=== PATIENT | male | born 1960 | race Caucasian/White ===

== ENCOUNTER 2018-12-03 23:02 | Emergency (ER) | payer MEDICARE, OTHER ==
[2018-12-04] MEDS ORDERED: Morphine 4 MG/ML VIAL ONE ×2 (00:07→05:51)
[2018-12-04] MEDS ORDERED: Ketorolac Tromethamine 30 MG/ML VIAL ONE (00:07)
[2018-12-04 00:16] LABS: Hemoglobin 12.5 g/dL (14.0-18.0); Mean Corpuscular HGB CONC 33.4 g/dL (32.0-36.0); Mean Corpuscular Volume 95.9 fL (78.0-98.0); Mean Platelet Volume 8.7 fL (7.4-10.4); Platelet Count 162 thou/uL (130-400); RBC Distribution Width 11.9 % (11.5-14.5); Red Blood Cell (RBC) Count 3.92 mill/uL (4.70-6.10)
[2018-12-04 00:28] LABS: Eosinophils 4 % (0-10); Lymphocytes 46 % (21-51); MDiff Complete? YES; Monocytes 3 % (0-10); Neutrophil 47 % (42-75); Platelet Morphology Comment Appears Adequate
[2018-12-04 00:30] LABS: CRP (Inflammatory) Less than 0.50 mg/dL (= or < 0.5); Magnesium 2.1 mg/dL (1.6-2.6)
[2018-12-04 00:36] LABS: ALT (SGPT) 13 U/L (8-55); AST (SGOT) 18 U/L (5-34); Albumin 3.8 g/dL (3.5-5.0); Alkaline Phosphatase 73 U/L (40-150); Anion Gap 14 mmol/L (10-20); BUN (Urea Nitrogen) 22 mg/dL (8.4-25.7); Bilirubin, Total 0.2 mg/dL (0.2-1.2); Calc. Creatinine Clearance 0 mL/min (70-130); Carbon Dioxide 26 mmol/L (22-29); Chloride 104 mmol/L (98-107); Estimated GFR-MDRD 60; Globulin 3.3 g/dL (2.4-3.5); Glucose 83 mg/dL (70-105); Protein, Total 7.1 g/dL (6.0-8.3); Sodium 139 mmol/L (136-145)
[2018-12-04 00:45] LABS: Bilirubin Negative (Negative); Blood, Urine Small (Negative); Clarity CLEAR (Clear); Glucose, Urine (Dipstick) Negative (Negative); Leukocyte Negative (Negative); Nitrite Negative (Negative); Protein, Urine (Dipstick) Negative (Neg-Trace); Specific Gravity, Urine 1.016 (1.002-1.036); Urobilinogen 0.2 mg/dL (0.2-1.0); pH, Urine 6.5 (5.0-9.0)
[2018-12-04 00:48] LABS: Bacteria/HPF None Seen HPF (None Seen); Hyaline Casts/LPF 0-3 HYALINE CAST LPF (0-3 Hyaline); Pathc Cast-AUWi Flag 0.13 (0-2.49); RBC/HPF 0-3 HPF (0-3); Squamous Epithelial 0-3 HPF (0-3); WBC/HPF None Seen HPF (0-3)
--- NOTE | 2018-12-04 07:39 | CT ---
PRELIMINARY REPORT/[facility]/EMERGENCY AFTER HOURS PROCEDURE: EXAM: CT Abdomen and Pelvis With Contrast EXAM DATE/TIME: 12/04/2018 12:36 AM CLINICAL HISTORY: 58 years old, male; Other: Back pain; Patient HX: Er 4. 59m: PT says that he stepped off a porch 4 da ys ago and had a sudden shooting pain in his lower back which has not resolved. PT has had pain with walking since then, and has not been able to urinate since tonight w/ last void this am TECHNIQUE: Imaging protocol: Axial computed tomography images of the abdomen and pelvis with intravenous contrast. Coronal and sagittal reformatted images were created and reviewed. COMPARISON: No relevant prior studies available. FINDINGS: ABDOMEN: Liver: No acute findings. No mass. Gallbladder and bile ducts: No calcified stones. No ductal dilation. Pancreas: No acute findings. No mass. No ductal dilation. Spleen: No acute findings. No mass. Adrenals: No acute findings. No mass. Kidneys and ureters: No acute findings. No mass. No hydronephrosis. Stomach and bowel: Fecal loading. Diverticulosis. No evidence of bowel obstruction. Appendix: Appendix is not discretely visualized from the bowel loops within the right lower quadrant. PELVIS: Bladder: Silva catheter in place. Reproductive: No acute findings. ABDOMEN and PELVIS: Intraperitoneal space: No free air. No significant fluid collection. Bones/joints: No acute fracture. Multilevel degenerative changes of the spine. Soft tissues: No acute findings. Vasculature: Atherosclerotic calcifications and plaques of the infrarenal abdominal aorta. No aortic aneurysm. Lymph nodes: No significant lymphadenopathy. IMPRESSION: No acute intraabdominal process. Lumbar spondylosis. Other findings above. Thank you for allowing us to participate in the care of your patient. Dictated and Authenticated by: Aneesh Guerrero MD 12/04/2018 2:14 AM Central Time ([place] & [place]) FINAL REPORT: CT abdomen and pelvis with IV contrast CT lumbar spine noncontrast DATE: 12/04/2018, performed on emergency basis at 0038 hours. HISTORY: Fall. Abdomen and back injury. FINDINGS: I agree with the preliminary report by Dr. Guerrero from [facility]. No acute traumatic injury is demonstrated. Large amount of stool throughout the colon. Degenerative changes lumbar spine. No acute osseous abnormalities are demonstrated. Transcribed Date/Time: 12/04/2018 8:04 AM
--- NOTE | 2018-12-04 07:44 | MRI ---
MRI LUMBAR SPINE WITH AND WITHOUT CONTRAST: INDICATION: Low back pain, progressive. FINDINGS: There is no high-grade central canal stenosis of the lumbar spine. There is multilevel disk-osteophy te formation resulting in multilevel mild central canal stenosis. There are mild multilevel bilatera l areas of neural foraminal narrowing, as well. There is potential for impingement of the traversing right L4 nerve root at the L3-4 level due to right side lateralized osteophyte. There is no evidenc e of an acute compression fracture or significant subluxation. No retropulsion of bone into the vert ebral canal. Marrow heterogeneity is favored to reflect degenerative marrow signal alteration, predo minantly Modic type II signal. Conus medullaris is visualized, terminating at the T12 level. Postco ntrast imaging reveals no pathologic intramedullary enhancement or enhancement along the nerve roots of cauda equina. No epidural abscess visualized. Multilevel end plate irregularities are present wi th Schmorl's node formation anteriorly at the inferior L1 vertebral body. Incidental note of disk-os teophyte formation of the low thoracic spine effacing the ventral thecal sac. IMPRESSION: 1. No MR evidence of severe central canal stenosis to indicate cauda equina syndrome. There is no ep idural abscess evident. 2. Multilevel degenerative changes present within the imaged low thoracic and lumbar spine with mult ilevel mild central canal stenosis and mild neural foraminal narrowing. POS: BEN
== END 2018-12-04 05:53 | disposition home or self-care (01) ==
LOC: ERS 23:02
DX: M54.5 Low back pain (principal); Z71.6 Tobacco abuse counseling; E78.5 Hyperlipidemia, unspecified; I10 Essential (primary) hypertension; G43.909 Migraine, unspecified, not intractable, without status migrainosus; F17.210 Nicotine dependence, cigarettes, uncomplicated; Z79.899 Other long term (current) drug therapy
CPT/HCPCS: 51703; 72158; 74177; 80053; 81003; 81015; 83735; 85025; 86140; 96361; 96374; 96375; 96376; J1885; J2270

== ENCOUNTER 2019-01-26 14:17 | Emergency (ER) | payer MEDICARE, OTHER ==
[2019-01-26] MEDS ORDERED: Ketorolac Tromethamine 30 MG/ML VIAL ONE (15:34)
== END 2019-01-26 15:55 | disposition home or self-care (01) ==
LOC: ERS 14:17
DX: M54.5 Low back pain (principal); E78.5 Hyperlipidemia, unspecified; I10 Essential (primary) hypertension; G43.909 Migraine, unspecified, not intractable, without status migrainosus; J43.9 Emphysema, unspecified; F17.210 Nicotine dependence, cigarettes, uncomplicated; Z79.899 Other long term (current) drug therapy; Y04.2XXA Assault by strike against or bumped into by another person, initial encounter
CPT/HCPCS: 96372; 99283; J1885

== ENCOUNTER 2019-10-25 20:41 | Emergency (ER) | payer MEDICARE, OTHER ==
--- NOTE | 2019-10-26 07:06 | RAD ---
LEFT SHOULDER 3 VIEWS: Date: 10/25/2019 HISTORY: Pain. COMPARISON: Radiograph dated 11/28/2010. FINDINGS: There is what appears to be an old, healed fracture of the greater tuberosity of the humerus. Normal acromioclavicular alignment with only mild narrowing. Ribs are intact. Small humeral head/neck osteophyte. IMPRESSION: Chronic findings. No acute osseous abnormality. POS: HOME
== END 2019-10-26 00:40 | disposition home or self-care (01) ==
LOC: ERS 20:41
DX: S43.402A Unspecified sprain of left shoulder joint, initial encounter (principal); E78.5 Hyperlipidemia, unspecified; I10 Essential (primary) hypertension; J43.9 Emphysema, unspecified; F17.210 Nicotine dependence, cigarettes, uncomplicated; V29.9XXA Motorcycle rider (driver) (passenger) injured in unspecified traffic accident, initial encounter

== ENCOUNTER 2021-03-25 11:28 | Emergency (ER) | payer MEDICARE, OTHER ==
[2021-03-25] MEDS ORDERED: Acetaminophen 500 MG TAB ONE (12:33)
== END 2021-03-25 13:09 | disposition home or self-care (01) ==
LOC: ERS 11:28
DX: M25.561 Pain in right knee (principal); M25.571 Pain in right ankle and joints of right foot; Z76.0 Encounter for issue of repeat prescription; E78.5 Hyperlipidemia, unspecified; I10 Essential (primary) hypertension; F17.210 Nicotine dependence, cigarettes, uncomplicated
CPT/HCPCS: 99283